=== PATIENT | male | born 2000 | race Caucasian/White ===

== ENCOUNTER 2022-01-31 15:36 | Emergency (ER) | payer OTHER ==
[2022-01-31] MEDS ORDERED: Sodium Chloride 0.9% 10 ML Syringe FLUSH PRN (15:45)
[2022-01-31] MEDS ORDERED: traMADol 50 MG Tab PO ONE (18:10)
== END 2022-01-31 18:40 | disposition home or self-care (01) ==
LOC: JD.ED 15:36
DX: S32.049A Unspecified fracture of fourth lumbar vertebra, initial encounter for closed fracture (principal); S40.011A Contusion of right shoulder, initial encounter; V29.9XXA Motorcycle rider (driver) (passenger) injured in unspecified traffic accident, initial encounter; Y92.410 Unspecified street and highway as the place of occurrence of the external cause
CPT/HCPCS: 36415; 71045; 72125; 72131; 73030; 73502; 85025; 99284; A9270; J3490